=== PATIENT | male | born 2000 | race African-American/Black ===

== ENCOUNTER 2025-05-16 03:46 | Emergency (ER) | payer MEDICAID, OTHER ==
[~2025-05-16] VITALS: Ht 185.4 cm; Wt 118.0 kg
[~2025-05-16 03:46] MED LIST: LITH5CAP; LURA20TA
[2025-05-16 03:52] VITALS: O2SAT 98
[2025-05-16 03:54] VITALS: BP 153/76; PULSE 85; RESP 18; TEMP 37.1
[2025-05-16] MEDS ORDERED: IBUP-1523 MT (07:44)
[2025-05-16] MEDS ORDERED: TOPUD MT (07:44)
== END 2025-05-16 08:20 | disposition home or self-care (01) ==
LOC: ER 03:46
DX: R00.2 Palpitations (principal); F17.200 Nicotine dependence, unspecified, uncomplicated
CPT/HCPCS: 71045; 93005; 99283